=== PATIENT | male | born 1975 | race African-American/Black ===

== ENCOUNTER 2016-10-17 21:28 | Emergency (ER) | payer OTHER ==
[~2016-10-17] VITALS: Ht 177.8 cm; Wt 86.2 kg
[~2016-10-17 21:28] MED LIST: ADALAT CC60 MG PO; BENADRYL25 M3 PO; BENADRYL25 MG ORAL; BENADRYL50 MG ORAL; CATAPRES0.3 MG ORAL; CATAPRES0.3 MG PO; CIPRO250 MG ORAL; CIPROFLOXACIN500 M2 ORAL; CLONIDINE HCL0.3 MG PO; CLOTRIMAZOLE15 GM TOPIC; DIPHENHYDRAMINE25 M1 ORAL; ENALAPRIL MALEA10 MG PO; HYDROCHLOROTHIA25 MG ORAL; KENALOG 0.1% CR15 GM APPLIC; MEDROL DOSEPAK4 MG ORAL; NIFEDIPINE ER60 M2 ORAL; NIFEDIPINE ER60 M3 ORAL; NIFEDIPINE ER60 MG PO; NITROFURANTOIN100 MG PO; PREDNISONE20 MG ORAL; RANITIDINE HCL150 MG ORAL; VASOTEC10 MG ORAL; VASOTEC10 MG PO; ZANTAC150 MG ORAL
[2016-10-17 21:50] VITALS: BP 130/84
[2016-10-17] MEDS ORDERED: DiphenhydrAMINE 50mg/ml Inj IVP ONE ×2 (22:15→23:15)
[2016-10-17 23:13] LABS: EOSINOPHILS % (AUTO) 3.5 % (0.0-3.0); LYMPHOCYTES % (AUTO) 35.5 % (20.0-45.0); MEAN CORPUSCULAR HEMOGLOBIN 34.8 PG (27.0-31.0); MEAN CORPUSCULAR HGB CONC 33.8 G/DL (32.0-36.0); MEAN CORPUSCULAR VOLUME 103 FL (80-99); MEAN PLATELET VOLUME 6.5 FL (6.5-10.1); MONOCYTES % (AUTO) 12.1 % (1.0-10.0); NEUTROPHILS % (AUTO) 47.9 % (45.0-75.0); PLATELET COUNT 231 K/UL (150-450); RED BLOOD COUNT 3.65 M/UL (4.70-6.10); RED CELL DISTRIBUTION WIDTH 13.5 % (11.6-14.8); WHITE BLOOD COUNT 7.1 K/UL (4.8-10.8)
[2016-10-17 23:23] LABS: CALCIUM 10.3 mg/dL (8.6-10.2); CREATININE 12.8 mg/dL (0.7-1.2); GLOMERULAR FILTRATION RATE 5.3 mL/min (>60); PHOSPHORUS 2.4 mg/dL (2.5-4.8); POTASSIUM 4.4 mEQ/L (3.4-4.9)
[2016-10-18] MEDS ORDERED: BENADRYL25 MG ORAL (00:04)
--- NOTE | 2016-10-18 00:04 | Emergency Room Report ---
History of Present Illness General Chief Complaint: General Complaint Source: Patient Present Illness HPI This is a 40-year-old male with a history of renal failure on hemodialysis. He presents with intense itchiness the last couple days. No relief with over-the- counter Benadryl. Similar symptom in the past. Denies any fever chills denies any nausea vomiting. No drug use. No pain. Allergies: Coded Allergies: PENICILLINS (Unverified Allergy, Unknown, 01/02/14) Patient History Past Medical History: see triage record, old chart reviewed, HTN, renal disease , dialysis Past Surgical History: other Pertinent Family History: none Social History: Denies: smoking Immunizations: other Reviewed Nursing Documentation: PMH: Agreed, PSxH: Agreed Nursing Documentation-PMH Hx Cardiac Problems: Yes - Enlarged heart Hx Hypertension: Yes Hx Cancer: No Hx Gastrointestinal Problems: Yes - DECREASED KIDNEY FUNCTION Hx Dialysis: Yes - ESRD, Ylfatls-Qkuapvyi-Rbxlqdve Hx Neurological Problems: No Hx Dizziness: Yes - UPON STANDING Review of Systems Eye: Denies: blurred vision, eye pain ENT: Denies: ear pain, nose congestion, throat swelling Respiratory: Denies: cough, shortness of breath Cardiovascular: Denies: chest pain, palpitations Gastrointestinal: Denies: abdominal pain, diarrhea, nausea, vomiting Musculoskeletal: Denies: back pain, joint pain Skin: Denies: rash Neurological: Denies: headache, numbness Endocrine: Denies: increased thirst, increased urine Hematologic/Lymphatic: Denies: easy bruising All Other Systems: negative except mentioned in HPI Physical Exam Vital Signs Date Time Temp Pulse Resp B/P Pulse Ox O2 Delivery O2 Flow Rate FiO2 10/17/16 21:43 97.9 81 16 130/84 98 Room Air vitals normal Sp02 EP Interpretation: reviewed, normal General Appearance: well appearing, no apparent distress, alert Head: normocephalic, atraumatic Eyes: bilateral eye EOMI, bilateral eye PERRL ENT: hearing grossly normal, normal pharynx Neck: full range of motion, supple, no meningismus Respiratory: chest non-tender, lungs clear, normal breath sounds Cardiovascular #1: regular rate, rhythm, no murmur Gastrointestinal: normal bowel sounds, non tender, no mass, no organomegaly, no bruit, non-distended Musculoskeletal: back normal, gait/station normal, normal range of motion Psychiatric: mood/affect normal Skin: warm/dry Medical Decision Making Diagnostic Impression: Primary Impression: Generalized pruritus ER Course Is with generalized pruritus. No evidence of infection. No evidence of allergic reaction. This may be secondary to uremia. We'll discharge him. Lab Results Impression labs unremarkable Last Vital Signs Date Time Temp Pulse Resp B/P Pulse Ox O2 Delivery O2 Flow Rate FiO2 10/17/16 21:50 97.9 16 130/84 98 Room Air 10/17/16 21:43 81 Status: improved Disposition: HOME, SELF-CARE Condition: Stable Scripts Diphenhydramine Hcl* (BENADRYL*) 25 Mg Capsule 50 MG ORAL Q6H Y for Itching, #30 CAP Prov: YESENIA SAMAYOA M.D. 10/18/16 Referrals: [facility] (PCP) Additional Instructions: Followup with your DrSnow in 7 days. Return if worse. YESENIA SAMAYOA M.D. Oct 18, 2016 00:04
[2016-10-18 00:15] VITALS: BP 130/84
== END 2016-10-18 00:15 | disposition home or self-care (01) ==
LOC: EMR 22:00
DX: L29.9 Pruritus, unspecified (principal); I12.0 Hypertensive chronic kidney disease with stage 5 chronic kidney disease or end stage renal disease; N18.6 End stage renal disease; Z99.2 Dependence on renal dialysis; Z88.0 Allergy status to penicillin
CPT/HCPCS: 36415; 80048; 82962; 84100; 85025; 96374; 96375; 99284; J1200

== ENCOUNTER 2016-10-25 16:30 | Emergency (ER) | payer OTHER ==
[~2016-10-25] VITALS: Ht 180.3 cm; Wt 86.2 kg
[2016-10-25] MEDS ORDERED: DiphenhydrAMINE 50mg/ml Inj IM ONE (18:00)
[2016-10-25] MEDS ORDERED: DiphenhydrAMINE 50mg/ml Inj IVP ONE (18:30)
[2016-10-25 19:15] VITALS: BP 127/81
--- NOTE | 2016-10-25 21:20 | Emergency Room Report ---
History of Present Illness General Chief Complaint: General Complaint Present Illness HPI The patient is a 40-year-old male presenting for possible allergic reaction. He states that he began taking any medication prescribed by his [employer] and began to have total body itching. He states that he stopped taking medication yesterday but symptoms have continued. He tried oral Benadryl which has not helped. He states that this has happened in the past with another medication and was treated with IV Benadryl which did help. He denies any pain. He denies shortness of breath or chest pain. Denies any difficulty breathing. Allergies: Coded Allergies: PENICILLINS (Unverified Allergy, Unknown, 01/02/14) Patient History Past Medical History: see triage record Pertinent Family History: none Reviewed Nursing Documentation: PMH: Agreed, PSxH: Agreed Nursing Documentation-PMH Hx Cardiac Problems: Yes - Enlarged heart Hx Hypertension: Yes Hx Cancer: No Hx Gastrointestinal Problems: Yes - DECREASED KIDNEY FUNCTION Hx Dialysis: Yes - ESRD, Dwqdryl-Ltcfzemy-Hpnnnevz Hx Neurological Problems: No Hx Dizziness: Yes - UPON STANDING Review of Systems All Other Systems: negative except mentioned in HPI Physical Exam Vital Signs Date Time Temp Pulse Resp B/P Pulse Ox O2 Delivery O2 Flow Rate FiO2 10/25/16 16:56 98.4 89 16 117/79 96 Room Air Sp02 EP Interpretation: reviewed, normal General Appearance: no apparent distress, alert, GCS 15, non-toxic Head: normocephalic, atraumatic Eyes: bilateral eye PERRL, bilateral eye normal inspection Respiratory: chest non-tender, lungs clear, normal breath sounds, speaking full sentences Genitourinary: normal inspection, no CVA tenderness Musculoskeletal: back normal, gait/station normal, normal range of motion, non- tender Neurologic: alert, oriented x3, responsive, motor strength/tone normal, sensory intact, speech normal Skin: normal color, no rash, warm/dry, well hydrated Lymphatic: no adenopathy Medical Decision Making PA Attestation Dr. Watts is my supervising physician. Patient management was discussed with my supervising physician Diagnostic Impression: Primary Impression: Allergic reaction Qualified Codes: T78.40XA - Allergy, unspecified, initial encounter ER Course The patient is a 40-year-old male presenting for possible allergic reaction. Ddx considered include but not limited to insect bite, contact dermatitis, eczema, cellulitis, anaphylaxis, among others PE: vitals WNL. NAD No angioedema. Lungs CTA bilat Skin is warm and dry. excoriation mclain present. No hives. No other lesions He is given IV benadryl and feels better. He will be DC'ed and will Fu with his doctor tomorrow to discuss medication change. ER precautions given Last Vital Signs Date Time Temp Pulse Resp B/P Pulse Ox O2 Delivery O2 Flow Rate FiO2 10/25/16 19:15 79 16 127/81 98 Room Air 10/25/16 16:56 98.4 Status: improved Disposition: HOME, SELF-CARE Condition: Improved Referrals: NON PHYSICIAN (PCP) Patient Instructions: Pruritus Additional Instructions: I discussed my findings with the patient. All questions and concerns have been answered. Treatment and medication compliance have been addressed. I advised the patient that they need to follow up with their doctor as soon as possible. Return to ED if symptoms worsen, new symptoms arise, or if needed for any reason. Patient verbalized understanding of discharge instructions. CHARLI QUIROZ Oct 25, 2016 21:20
== END 2016-10-25 19:18 | disposition home or self-care (01) ==
LOC: EMR 17:55
DX: T78.40XA Allergy, unspecified, initial encounter (principal); X58.XXXA Exposure to other specified factors, initial encounter; L29.9 Pruritus, unspecified; I12.0 Hypertensive chronic kidney disease with stage 5 chronic kidney disease or end stage renal disease; N18.6 End stage renal disease; Z99.2 Dependence on renal dialysis; Z88.0 Allergy status to penicillin
CPT/HCPCS: 96372; 96374; 99284; J1200

== ENCOUNTER 2017-06-28 11:16 | Emergency (ER) | payer OTHER ==
[~2017-06-28] VITALS: Ht 172.7 cm; Wt 95.3 kg
[2017-06-28 11:38] VITALS: BP 11/67
[2017-06-28] MEDS ORDERED: ALBUTEROL SULF8.5 GM INH (11:52)
[2017-06-28 11:55] VITALS: BP 110/67
--- NOTE | 2017-06-29 07:45 | Emergency Room Report ---
History of Present Illness General Chief Complaint: Earache Source: Patient Present Illness HPI 41-year-old male presents ED for evaluation. Complaining of bilateral ear pain. Started yesterday. Patient states he is "getting over a cold". States cough has improved however developed ear pain now. Dull, 5 out of 10, nonradiating. Denies fevers or chills. Denies sore throat. Notes cough which is dry. Admits to smoking. Denies chest pain or shortness of breath. History of ESRD and is compliant with his dialysis. No other aggravating relieving factors. Denies any other associated symptoms Allergies: Coded Allergies: PENICILLINS (Unverified Allergy, Unknown, 01/02/14) Patient History Past Medical History: HTN, renal disease, dialysis Past Surgical History: none Pertinent Family History: none Social History: Denies: smoking, alcohol use, drug use Immunizations: UTD Reviewed Nursing Documentation: PMH: Agreed; PSxH: Agreed Nursing Documentation-PMH Hx Cardiac Problems: Yes - Enlarged heart Hx Hypertension: Yes Hx Cancer: No Hx Gastrointestinal Problems: Yes - DECREASED KIDNEY FUNCTION Hx Dialysis: Yes - ESRD, Uleeayr-Fptwkhne-Rziwopdu Hx Neurological Problems: No Hx Dizziness: Yes - UPON STANDING Review of Systems All Other Systems: negative except mentioned in HPI Physical Exam Vital Signs Date Time Temp Pulse Resp B/P (MAP) Pulse Ox O2 Delivery O2 Flow Rate FiO2 06/28/17 11:34 98.7 105 18 11/ 96 Room Air 98.8 Sp02 EP Interpretation: reviewed, normal General Appearance: no apparent distress, alert, GCS 15, non-toxic Head: normocephalic, atraumatic Eyes: bilateral eye normal inspection, bilateral eye PERRL ENT: hearing grossly normal, normal pharynx, no angioedema, normal voice Neck: full range of motion, supple/symm/no masses Respiratory: chest non-tender, lungs clear, normal breath sounds, speaking full sentences Cardiovascular #1: regular rate, rhythm, no edema Cardiovascular #2: 2+ carotid (R), 2+ carotid (L), 2+ radial (R), 2+ radial (L) , 2+ dorsalis pedis (R), 2+ dorsalis pedis (L) Gastrointestinal: normal bowel sounds, non tender, soft, non-distended, no guarding, no rebound Rectal: deferred Genitourinary: normal inspection, no CVA tenderness Musculoskeletal: back normal, gait/station normal, normal range of motion, non- tender Neurologic: alert, oriented x3, responsive, motor strength/tone normal, sensory intact, speech normal Psychiatric: judgement/insight normal, memory normal, mood/affect normal, no suicidal/homicidal ideation Reflexes: 3+ bicep (R), 3+ bicep (L), 3+ tricep (R), 3+ tricep (L), 3+ knee (R) , 3+ knee (L) Skin: normal color, no rash, warm/dry, well hydrated Lymphatic: no adenopathy Medical Decision Making Diagnostic Impression: Primary Impression: Upper respiratory infection Qualified Codes: J06.9 - Acute upper respiratory infection, unspecified ER Course Hospital Course 41-year-old male presents ED with bilateral ear pain, cough Differential diagnoses include: URI, pharyngitis, otitis media, asthma Clinical course Patient placed on stretcher. After initial history, physical exam reveals a male in no acute distress. Bilateral TM unremarkable. No pharyngeal erythema. No tonsillar exudates. No lymphadenopathy. minimal wheezing noted on exam. abdomen soft. Clinical findings consistent with URI. Reassurance given. patient does not require abx, however I will prescribe inhaler Diagnosis - URI Stable and discharged home with Rx albuterol. Instructed to followup with PMD. Return to ED if symptoms recur or worsen Last Vital Signs Date Time Temp Pulse Resp B/P (MAP) Pulse Ox O2 Delivery O2 Flow Rate FiO2 06/28/17 11:55 98.8 105 18 110/67 96 06/28/17 11:38 Room Air Status: improved Disposition: HOME, SELF-CARE Condition: Stable Scripts Albuterol Sulfate* (ALBUTEROL SULFATE MDI*) 8.5 Gm Hfa.aer.ad 2 PUFF INH Q6H, #1 EA 0 Refills Prov: Phillip Gonzalez MD 06/28/17 Referrals: [facility] ([facility]P) Patient Instructions: Upper Respiratory Infection, Adult, Hzcv-dt-Sxcw Phillip Gonzalez MD Jun 29, 2017 07:45
== END 2017-06-28 11:55 | disposition home or self-care (01) ==
LOC: EMR 11:48
DX: J06.9 Acute upper respiratory infection, unspecified (principal); H92.03 Otalgia, bilateral; I12.0 Hypertensive chronic kidney disease with stage 5 chronic kidney disease or end stage renal disease; N18.6 End stage renal disease; Z99.2 Dependence on renal dialysis; Z88.0 Allergy status to penicillin
CPT/HCPCS: 99283

== ENCOUNTER 2017-07-03 20:12 | Emergency (ER) | payer OTHER ==
[~2017-07-03] VITALS: Ht 175.3 cm; Wt 104.3 kg
[~2017-07-03 20:12] MED LIST changes: +ALBUTEROL SULF8.5 GM INH
--- NOTE | 2017-07-03 21:06 | Emergency Room Report ---
History of Present Illness General Chief Complaint: General Complaint Source: Patient, Medical Record Present Illness HPI This is a 41-year-old male with a history of renal failure on hemodialysis. His dialysis days are Tuesday, , and Tuesday. He presents with chief complaint of itching. Diffuse in nature. Onset for about a day. He was concerned that his phosphorus is high and and also his potassium may be high. He came in today because his dialysis will be in to Tuesday. He is compliant with his medication and dialysis. No fever chills but no nausea no vomiting. Has not taken anything for it. similar symptoms in the past. Allergies: Coded Allergies: No Known Allergies (Unverified , 07/03/17) Patient History Past Medical History: see triage record, old chart reviewed, HTN, renal disease , dialysis Past Surgical History: other - nephrectomy Pertinent Family History: none Social History: Denies: smoking Immunizations: other Reviewed Nursing Documentation: PMH: Agreed; PSxH: Agreed Nursing Documentation-PMH Past Medical History: No History, Except For Hx Cardiac Problems: Yes - Enlarged heart Hx Hypertension: Yes Hx Cancer: No Hx Gastrointestinal Problems: Yes - DECREASED KIDNEY FUNCTION Hx Dialysis: Yes - ESRD, Swgazgm-Fexwdcdq-Ucwacens Hx Neurological Problems: No Hx Dizziness: Yes - UPON STANDING Review of Systems Eye: Denies: eye pain, blurred vision ENT: Denies: ear pain, nose congestion, throat swelling Respiratory: Denies: cough, shortness of breath Cardiovascular: Denies: chest pain, palpitations Gastrointestinal: Denies: abdominal pain, diarrhea, nausea, vomiting Musculoskeletal: Denies: back pain, joint pain Skin: Denies: rash Neurological: Denies: headache, numbness Endocrine: Denies: increased thirst, increased urine Hematologic/Lymphatic: Denies: easy bruising All Other Systems: negative except mentioned in HPI Physical Exam Vital Signs Date Time Temp Pulse Resp B/P (MAP) Pulse Ox O2 Delivery O2 Flow Rate FiO2 07/03/17 20:47 98.1 88 16 120/78 99 Room Air 98.1 vitals chad Sp02 EP Interpretation: reviewed, normal General Appearance: well appearing, no apparent distress, alert Head: normocephalic, atraumatic Eyes: bilateral eye PERRL, bilateral eye EOMI ENT: hearing grossly normal, normal pharynx Neck: full range of motion, supple, no meningismus Respiratory: chest non-tender, lungs clear, normal breath sounds Cardiovascular #1: regular rate, rhythm, no murmur Gastrointestinal: normal bowel sounds, non tender, no mass, no organomegaly, no bruit, non-distended Musculoskeletal: back normal, gait/station normal, normal range of motion, other - right upper arm graft with good thrill Psychiatric: mood/affect normal Skin: warm/dry Medical Decision Making Diagnostic Impression: Primary Impression: Pruritus ER Course Patient with generalize itching. No evidence of infection. No evidence of LI abnormality. No evidence of allergic reaction. We'll discharge home. He felt better after Benadryl. Last Vital Signs Date Time Temp Pulse Resp B/P (MAP) Pulse Ox O2 Delivery O2 Flow Rate FiO2 07/03/17 20:47 98.1 88 16 120/78 99 Room Air 98.1 Status: improved Disposition: HOME, SELF-CARE Condition: Stable Referrals: NON PHYSICIAN (PCP) Additional Instructions: Follow-up your Dr. in 7 days. Keep your dialysis appointment. Return if worse. YESENIA SAMAYOA M.D. Jul 03, 2017 21:06
[2017-07-03] MEDS ORDERED: DiphenhydrAMINE 50mg/ml Inj IVP ONE (21:15)
[2017-07-03 21:18] VITALS: BP 113/86
[2017-07-03 21:20] LABS: BASOPHILS % (AUTO) 1.5 % (0.0-2.0); EOSINOPHILS % (AUTO) 3.1 % (0.0-3.0); HEMATOCRIT 34.5 % (42.0-52.0); HEMOGLOBIN 10.9 G/DL (14.2-18.0); LYMPHOCYTES % (AUTO) 31.3 % (20.0-45.0); MEAN CORPUSCULAR VOLUME 101 FL (80-99); MONOCYTES % (AUTO) 11.3 % (1.0-10.0); NEUTROPHILS % (AUTO) 52.8 % (45.0-75.0); PLATELET COUNT 241 K/UL (150-450); RED BLOOD COUNT 3.43 M/UL (4.70-6.10); RED CELL DISTRIBUTION WIDTH 14.8 % (11.6-14.8); WHITE BLOOD COUNT 8.1 K/UL (4.8-10.8)
[2017-07-03 21:35] LABS: ANION GAP 9 mmol/L (5-15); BLOOD UREA NITROGEN 29 mg/dL (7-18); CALCIUM 9.3 MG/DL (8.5-10.1); CARBON DIOXIDE 33 MMOL/L (21-32); CHLORIDE 99 MMOL/L (98-107); CREATININE 11.6 MG/DL (0.55-1.30); POTASSIUM 4.1 MMOL/L (3.5-5.1); SODIUM 141 MMOL/L (136-145)
[2017-07-03 21:39] LABS: PHOSPHORUS 4.4 MG/DL (2.5-4.9)
[2017-07-03 22:03] VITALS: BP 124/76
== END 2017-07-03 22:09 | disposition home or self-care (01) ==
LOC: EMR 20:50
DX: L29.9 Pruritus, unspecified (principal); I12.0 Hypertensive chronic kidney disease with stage 5 chronic kidney disease or end stage renal disease; N18.6 End stage renal disease; Z99.2 Dependence on renal dialysis
CPT/HCPCS: 36415; 80048; 83735; 84100; 85025; 96374; 99284; J1200

== ENCOUNTER 2018-12-09 17:00 | Emergency (ER) | payer OTHER ==
[~2018-12-09] VITALS: Ht 177.8 cm; Wt 120.2 kg
[2018-12-09 17:21] VITALS: BP 108/74
--- NOTE | 2018-12-09 17:21 | NUR ---
ED Nurse Note: pt walked in to ER from home due to pain from fall in 0 this morning. pt aao x4 and ambulatory with a cane. calm and cooperative. skin clean and intact. pt gets dialysis Q Tues, [place], Sat and he got one this morning. pt has fistula on Rt upper arm. pt is in gown and on surveillance monitor.
[2018-12-09] MEDS ORDERED: DiphenhydrAMINE 50mg/ml Inj IM ONE (17:30)
[2018-12-09] MEDS ORDERED: oxyCODONE HCL/Acetaminophen 5/325mg PO ONE (17:30)
--- NOTE | 2018-12-09 17:32 | Emergency Room Report ---
History of Present Illness General Chief Complaint: Pain Source: Patient Present Illness HPI The patient presents after slipping and falling at 3:55 this morning. He was in a 7-[employer] getting prepared to go to dialysis. He slipped on some water and landed on his left side. He has left shoulder pain. Left elbow pain left knee pain and left big toe pain. He denies loss of consciousness. He fell pretty hard. He is tried taking tramadol before coming in. The pain is still significant. He rates it 8/10 and aching and having difficulty walking. He brought a cane and is able to ambulate with difficulty. He denies any numbness. No bruising. The patient underwent dialysis completely without difficulty. He does not make urine at this time. He denies chest pain, palpitations, change in vision, headache, nausea, vomiting, diarrhea or skin rashes. The patient complains of itching. He states this is not unusual postdialysis. He is requesting a shot of Benadryl. A year and a half ago he had a nephrectomy for kidney cancer. Allergies: Coded Allergies: No Known Allergies (Unverified , 07/03/17) Patient History Past Medical History: see triage record Past Surgical History: other - fistula, nephrectomy from kidney cancer Social History: Reports: smoking Social History Narrative brought by Reviewed Nursing Documentation: PMH: Agreed; PSxH: Agreed Nursing Documentation-PMH Hx Cardiac Problems: Yes - Enlarged heart Hx Hypertension: Yes Hx Cancer: No Hx Gastrointestinal Problems: Yes - DECREASED KIDNEY FUNCTION Hx Dialysis: Yes - ESRD, Tswlekd-Ynbhavwz-Ufxkzzjw Hx Neurological Problems: No Hx Dizziness: Yes - UPON STANDING Review of Systems All Other Systems: negative except mentioned in HPI Physical Exam Vital Signs Date Time Temp Pulse Resp B/P (MAP) Pulse Ox O2 Delivery O2 Flow Rate FiO2 12/09/18 17:03 98.2 99 18 112/73 (86) 95 Room Air Sp02 EP Interpretation: reviewed, normal General Appearance: well appearing, no apparent distress, GCS 15 Head: normocephalic, atraumatic Eyes: bilateral eye normal inspection, bilateral eye abnormal EOM - Disconjugate gaze ENT: moist mucus membranes Neck: supple, no bony tend Respiratory: lungs clear, normal breath sounds Cardiovascular #1: regular rate, rhythm Cardiovascular #2: 2+ radial (R), 2+ dorsalis pedis (L) Gastrointestinal: normal inspection, normal bowel sounds, non tender, no mass, non-distended Genitourinary: no CVA tenderness Musculoskeletal: back normal, normal range of motion, no calf tenderness, pelvis stable, other - Left elbow without point tenderness full range of motion without effusion, tender - Left great toe, left knee and left shoulder. Ligaments stable and no effusion. Passive range of motion full of left shoulder. Neurologic: alert, oriented x3, grossly normal Psychiatric: mood/affect normal Skin: no rash Medical Decision Making Diagnostic Impression: Primary Impression: Fall Qualified Codes: W19.XXXA - Unspecified fall, initial encounter Additional Impressions: Multiple contusions Fracture of left great toe Qualified Codes: S92.425A - Nondisplaced fracture of distal phalanx of left great toe, initial encounter for closed fracture ESRD (end stage renal disease) on dialysis ER Course Patient presents post slip and fall early this morning. Differential includes contusion, sprain and fracture. X-rays are indicated. In addition the patient will be given a dose of Percocet. We will check an Accu-Chek. He is requesting Benadryl and this will be given IM. Patient refused Benadryl unless it was given IV. Accu-Chek 91. Improved with Percocet. Fx big toe. Djd rest. Casey re-applied by me (tension). Position excellent and distal neurovasc normal. Demetrio taping and Ortho boot with improvement and normal distal neurovascular exam checked by me. Improved pain. Discussed treatment. Ambulatory without difficulty without cane. Greatly improved. Patient stable for outpatient observation and treatment. Other X-Ray Diagnostic Results Other X-Ray Diagnostic Results #1: X-Ray ordered: Left foot # of Views/Limited Vs Complete: 3 View Indication: Pain EP Interpretation: Yes Interpretation: no dislocation, no soft tissue swelling, other - fx distal phalynx Impression: Other Electronically Signed by: Electronically signed by Ellis Correa MD Other X-Ray Diagnostic Results #2: X-Ray ordered: Left knee # of Views/Limited Vs Complete: 3 View Indication: Pain EP Interpretation: Yes Interpretation: no dislocation, no soft tissue swelling, no fractures, other - DJD and narrowing of joint space Impression: Other Electronically Signed by: Electronically signed by Ellis Correa MD Other X-Ray Diagnostic Results #3: X-Ray ordered: Left shoulder # of Views/Limited Vs Complete: 3 View Indication: Pain EP Interpretation: Yes Interpretation: no dislocation, no soft tissue swelling, no fractures, other - DJD Impression: Other Electronically Signed by: Electronically signed by Ellis Correa MD Last Vital Signs Date Time Temp Pulse Resp B/P (MAP) Pulse Ox O2 Delivery O2 Flow Rate FiO2 12/09/18 18:35 98.2 92 18 112/86 100 Room Air Status: improved Disposition: HOME, SELF-CARE Condition: Improved Scripts Oxycodone/Acetaminophen 5-325* (PERCOCET 5-325 MG TABLET*) 1 Each Tablet 1 TAB ORAL Q6H PRN for For Pain, #12 TAB Prov: Ellis Correa MD 12/09/18 Ellis Correa MD Dec 09, 2018 17:32
--- NOTE | 2018-12-09 17:39 | NUR ---
ED Nurse Note: pt refused Benadryl IM as stating "The shot on my skin always gives me pain for a week. I want IV." ERMD made aware.
--- NOTE | 2018-12-09 17:43 | NUR ---
ED Nurse Note: pt went down for x-ray in stable condition.
--- NOTE | 2018-12-09 17:43 | NUR ---
ED Nurse Note: ERMD offered pt Benadryl PO. pt stated "You guys don't understand and refused. no Benadryl will be given. pt made aware.
--- NOTE | 2018-12-09 18:07 | NUR ---
ED Nurse Note: pt came back from x-ray in stable condition.
--- NOTE | 2018-12-09 18:11 | NUR ---
ED Nurse Note: avinash wrap applied at bedside.
[2018-12-09] MEDS ORDERED: PERCOCET 5-3251 EACH ORAL (18:25)
[2018-12-09 18:35] VITALS: BP 112/86
--- NOTE | 2018-12-09 18:35 | NUR ---
ED Nurse Note: Pt cleared by health care Provider for discharge after avinash wrap, splint applied on Lt foot. DC instructions/prescription was given and explained to pt and verbalized understanding of teachings. All medical deviecs such as ID band removed. Pt is AAO x4, ambulatory and left with all personal belongings.
--- NOTE | 2018-12-09 19:14 | Diagnostic Imaging Report ---
EXAM: XR Left Foot Complete, 3 or More Views CLINICAL HISTORY: TRAUMA TECHNIQUE: Frontal, lateral and oblique views of the left foot. COMPARISON: No relevant prior studies available. FINDINGS: Bones joints: 1st distal phalangeal base nondisplaced fracture. No acute dislocation. Soft tissues: Soft tissue swelling. No radiopaque foreign body. IMPRESSION: 1st distal phalangeal base nondisplaced fracture.
--- NOTE | 2018-12-09 19:15 | Diagnostic Imaging Report ---
EXAM: XR Left Knee, 3 Views CLINICAL HISTORY: TRAUMA TECHNIQUE: Three views of the left knee. COMPARISON: No relevant prior studies available. FINDINGS: Bones joints: No acute displaced fracture or dislocation. No significant joint effusion. Mild degenerative changes. Soft tissues: Unremarkable. IMPRESSION: No acute displaced fracture or dislocation.
--- NOTE | 2018-12-09 19:15 | Diagnostic Imaging Report ---
EXAM: XR Left Shoulder Complete, 2 or More Views CLINICAL HISTORY: TRAUMA TECHNIQUE: Two or more views of the left shoulder. COMPARISON: No relevant prior studies available. FINDINGS: Bones joints: No acute displaced fracture or dislocation. Soft tissues: Unremarkable. IMPRESSION: No acute displaced fracture or dislocation.
== END 2018-12-09 18:35 | disposition home or self-care (01) ==
LOC: EMR 17:46
DX: S92.425A Nondisplaced fracture of distal phalanx of left great toe, initial encounter for closed fracture (principal); T14.8XXA Other injury of unspecified body region, initial encounter; I12.0 Hypertensive chronic kidney disease with stage 5 chronic kidney disease or end stage renal disease; N18.6 End stage renal disease; Z99.2 Dependence on renal dialysis; Z85.528 Personal history of other malignant neoplasm of kidney; Z90.5 Acquired absence of kidney; F17.200 Nicotine dependence, unspecified, uncomplicated; W01.0XXA Fall on same level from slipping, tripping and stumbling without subsequent striking against object, initial encounter; Y92.9 Unspecified place or not applicable
CPT/HCPCS: 73030; 73562; 73630; 82962; Z7502; 99284

== ENCOUNTER 2019-05-03 00:12 | Inpatient (IN) | payer OTHER ==
[~2019-05-03] VITALS: Ht 177.8 cm; Wt 108.9 kg
[~2019-05-03 00:12] MED LIST changes: +PERCOCET 5-3251 EACH ORAL
--- NOTE | 2019-05-03 00:20 | NUR ---
ED Nurse Note: PT WALKED IN TO ED C/O DIALYSIS FISTULA PROBLEM. PT STATES ONSET OF PROBLEM AFTER HIS DIALYSIS ON TUESDAY 05/02. PT STATES VISIBLE PUS AND SWELLING WITH MILD PAIN ON THE SITE. DIALYSIS SITE IS VISIBLY EDEMATOUS WITH SMALL YELLOW DRAINAGE. VSS, NAD, ERMD AT BEDSIDE. WILL CONTINUE TO MONITOR PATIENT.
[2019-05-03 00:32] VITALS: BP 141/82
[2019-05-03] MEDS ORDERED: Vancomycin 1.5 GM in NS 275 ML IVPB ONE (00:45)
[2019-05-03 00:53] LABS: BASOPHILS % (AUTO) 0.9 % (0.0-2.0); EOSINOPHILS % (AUTO) 2.1 % (0.0-3.0); HEMATOCRIT 32.9 % (42.0-52.0); HEMOGLOBIN 11.2 G/DL (14.2-18.0); MEAN CORPUSCULAR VOLUME 101 FL (80-99); MONOCYTES % (AUTO) 14.6 % (1.0-10.0); NEUTROPHILS % (AUTO) 59.4 % (45.0-75.0); PLATELET COUNT 206 K/UL (150-450); RED BLOOD COUNT 3.26 M/UL (4.70-6.10); RED CELL DISTRIBUTION WIDTH 15.4 % (11.6-14.8); WHITE BLOOD COUNT 9.1 K/UL (4.8-10.8)
[2019-05-03] MEDS ORDERED: Bacitracin Oint UD TOPIC ONE (01:00)
[2019-05-03 01:06] LABS: ANION GAP 10 mmol/L (5-15); BLOOD UREA NITROGEN 1 mg/dL (7-18); CARBON DIOXIDE 33 MMOL/L (21-32); CHLORIDE 98 MMOL/L (98-107); CREATININE 15.3 MG/DL (0.55-1.30); POTASSIUM 4.9 MMOL/L (3.5-5.1); SODIUM 141 MMOL/L (136-145)
[2019-05-03 01:10] LABS: ALANINE AMINOTRANSFERASE 37 U/L (12-78); ALBUMIN 3.6 G/DL (3.4-5.0); ALBUMIN/GLOBULIN RATIO 0.9 (1.0-2.7); ALKALINE PHOSPHATASE 79 U/L (46-116); ASPARTATE AMINO TRANSFERASE 21 U/L (15-37); BILIRUBIN,TOTAL 0.2 MG/DL (0.2-1.0); CREATINE KINASE 816 U/L (26-308)
--- NOTE | 2019-05-03 01:17 | Emergency Room Report ---
History of Present Illness General Chief Complaint: General Complaint Source: Patient Present Illness HPI Earlier today patient noticed drainage from his dialysis fistula earlier today. He denies any fevers or chills. Dialysis was last performed yesterday. He has redness and swelling in 1 of the sites that they used. He is not taking any antibiotics at this time. Patient with recent hospitalization at [facility] for evaluation of his heart. He says his heart enzyme was elevated at that time. He denies chest pain or shortness of breath at this time. The patient does not make urine. No sore throat, palpitations, nausea, vomiting, diarrhea, abdominal pain, joint pain, depression, anxiety, visual changes, dizziness, headache. The patient was due to have dialysis this morning at 3 AM. Allergies: Coded Allergies: No Known Allergies (Unverified , 07/03/17) Patient History Past Medical History: see triage record Past Surgical History: other - Dialysis fistula right upper arm Social History: Denies: smoking, alcohol use, drug use Social History Narrative and working Reviewed Nursing Documentation: PMH: Agreed; PSxH: Agreed Nursing Documentation-PMH Hx Cardiac Problems: Yes - Enlarged heart Hx Hypertension: Yes Hx Cancer: No Hx Gastrointestinal Problems: Yes - DECREASED KIDNEY FUNCTION Hx Dialysis: Yes - ESRD, Eonmwft-Dzatjswt-Wcperwtb Hx Neurological Problems: No Hx Dizziness: Yes - UPON STANDING Review of Systems Endocrine: Reports: unexplained weight loss All Other Systems: negative except mentioned in HPI Physical Exam Vital Signs Date Time Temp Pulse Resp B/P (MAP) Pulse Ox O2 Delivery O2 Flow Rate FiO2 05/03/19 00:15 98.1 82 18 144/94 (111) 97 Room Air Sp02 EP Interpretation: reviewed, normal General Appearance: well appearing, no apparent distress, GCS 15 Head: normocephalic Eyes: bilateral eye PERRL, bilateral eye other - Disconjugate gaze ENT: moist mucus membranes Neck: supple Respiratory: chest non-tender, lungs clear, normal breath sounds Cardiovascular #1: regular rate, rhythm Cardiovascular #2: 2+ radial (R) - Thrill of fistula upper arm Gastrointestinal: normal inspection, normal bowel sounds, non tender, no mass, non-distended Musculoskeletal: back normal, normal range of motion, gait/station normal Neurologic: alert, oriented x3, grossly normal Psychiatric: mood/affect normal Skin: warm/dry, other - Erythema and minimal inflammation upper dialysis site without fluctuance. Slight drainage. Medical Decision Making Diagnostic Impression: Primary Impression: Cellulitis dialysis fistula Additional Impression: ESRD (end stage renal disease) on dialysis ER Course Patient presents with drainage from his dialysis fistula. Differential includes cellulitis, abscess, local infection amongst others. Clinically he is nontoxic at this time. However due to the extent of his illness laboratory is indicated as well as blood cultures. Dose of vancomycin will be administered and topical bacitracin applied. EKG without injury. Chest x-ray no infiltrates. Labs with normal white count. CMP with chronic renal failure. gave phone numbers for contact if blood cultures are positive. They were taken to be complete. The patient and family understand that they may need to be called back in if these blood cultures are positive. 2 phone numbers were provided. and . Called with positive troponin. Aspirin administered. Discussed findings with patient and . Discussed the need for repeat troponin determinations and observation. Patient initially threatened to sign out AGAINST MEDICAL ADVICE but then understood the reason to stay and agreed. No urgent dialysis indicated at the moment. If troponin was not elevated, I would discharge the patient on Bactrim. Patient wanted to go to [facility] but agreed to stay only for observation and repeat troponins Laboratory Tests Test 05/03/19 00:40 White Blood Count 9.1 K/UL (4.8-10.8) Red Blood Count 3.26 M/UL (4.70-6.10) L Hemoglobin 11.2 G/DL (14.2-18.0) L Hematocrit 32.9 % (42.0-52.0) L Mean Corpuscular Volume 101 FL (80-99) H Mean Corpuscular Hemoglobin 34.3 PG (27.0-31.0) H Mean Corpuscular Hemoglobin Concent 33.9 G/DL (32.0-36.0) Red Cell Distribution Width 15.4 % (11.6-14.8) H Platelet Count 206 K/UL (150-450) Mean Platelet Volume 5.6 FL (6.5-10.1) L Neutrophils (%) (Auto) 59.4 % (45.0-75.0) Lymphocytes (%) (Auto) 23.0 % (20.0-45.0) Monocytes (%) (Auto) 14.6 % (1.0-10.0) H Eosinophils (%) (Auto) 2.1 % (0.0-3.0) Basophils (%) (Auto) 0.9 % (0.0-2.0) Prothrombin Time 10.7 SEC (9.30-11.50) Prothrombin Time INR 1.0 (0.9-1.1) Activated Partial Thromboplast Time 28 SEC (23-33) Sodium Level 141 MMOL/L (136-145) Potassium Level 4.9 MMOL/L (3.5-5.1) Chloride Level 98 MMOL/L (98-107) Carbon Dioxide Level 33 MMOL/L (21-32) H Anion Gap 10 mmol/L (5-15) Blood Urea Nitrogen 1 mg/dL (7-18) L Creatinine 15.3 MG/DL (0.55-1.30) H Estimate Glomerular Filtration Rate 4.2 mL/min (>60) Glucose Level 97 MG/DL (74-106) Lactic Acid Level 0.50 mmol/L (0.4-2.0) Calcium Level 9.6 MG/DL (8.5-10.1) Magnesium Level 2.0 MG/DL (1.8-2.4) Total Bilirubin 0.2 MG/DL (0.2-1.0) Aspartate Amino Transferase (AST) 21 U/L (15-37) Alanine Aminotransferase (ALT) 37 U/L (12-78) Alkaline Phosphatase 79 U/L (46-116) Total Creatine Kinase 816 U/L (26-308) H Troponin I 0.271 ng/mL (0.000-0.056) Total Protein 7.6 G/DL (6.4-8.2) Albumin 3.6 G/DL (3.4-5.0) Globulin 4.0 g/dL Albumin/Globulin Ratio 0.9 (1.0-2.7) L EKG Diagnostic Results Rate: normal Rhythm: NSR ST Segments: no acute changes - Left ventricular hypertrophy Rhythm Strip Diag. Results EP Interpretation: yes Rhythm: NSR, no PVC's, no ectopy Chest X-Ray Diagnostic Results Chest X-Ray Diagnostic Results : Chest X-Ray Ordered: Yes # of Views/Limited/Complete: 1 View Indication: Other EP Interpretation: Yes Interpretation: no consolidation, no pneumothorax, other - inc cor, possible effusion L Impression: Other Electronically Signed by: Electronically signed by Ellis Correa MD Last Vital Signs Date Time Temp Pulse Resp B/P (MAP) Pulse Ox O2 Delivery O2 Flow Rate FiO2 05/03/19 08:00 97.9 77 20 133/78 (96) 97 05/03/19 04:31 Room Air 05/03/19 03:20 98 Status: improved Disposition: PLACE IN OBSERVATION Condition: Serious Referrals: [facility],REFERRING (PCP) Ellis Correa MD May 03, 2019 01:17
--- NOTE | 2019-05-03 01:49 | NUR ---
ED Nurse Note: XR ATBEDSIDE.
[2019-05-03 01:52] LABS: CALCIUM 9.6 MG/DL (8.5-10.1)
--- NOTE | 2019-05-03 02:52 | NUR ---
ED Nurse Note: patient requested to leave, stating he wishes to drive to [facility] instead of an admission in [place]. NOEMY notified.
[2019-05-03] MEDS ORDERED: DiphenhydrAMINE 50mg/ml Inj IVP ONE (03:15)
--- NOTE | 2019-05-03 03:15 | NUR ---
ED Nurse Note: gave report to Celestina SHERWOOD for 211-2
--- NOTE | 2019-05-03 03:20 | NUR ---
TRANSFER TO FLOOR: Patient transferred to [facility] via [facility] in stable condition accompanied by 1 rn 1tech as ordered, per dr. Martinez. Report given to Stephany SHERWOOD. Belongings sent with patient.
--- NOTE | 2019-05-03 03:35 | NUR ---
NURSE NOTES: Received report from Modesto Winter, FLOOR WORKER [employer]SF[employer]. Patient was transferred to Telemetry unit from ER via gurney without incident. No signs of acute distress noted; denies pain at this time. AOx4; able to make needs known. Ambulates independently. Checked IV site; patent and flushed. No erythema, bleeding, or infiltration noted. Right upper arm AV shunt noted; thrill and bruit present, however not actively in use for further assessment of potential infection. Patient put on Tele box; sinus rhythm on the monitor (70s). Belongings list checked with patient and transferring RN. Skin assessment performed; skin intact. No wounds noted. Bed at lowest position, brakes on, siderails up x2. Call light within reach. Will continue to monitor.
[2019-05-03 04:00] VITALS: BP 146/111
[2019-05-03] MEDS ORDERED: ASPIR 8181 MG ORAL (04:15)
[2019-05-03] MEDS ORDERED: CATAPRES0.2 MG ORAL (04:15)
[2019-05-03] MEDS ORDERED: NORMODYNE100 MG ORAL (04:15)
[2019-05-03] MEDS ORDERED: CALCIUM ACETAT667 M2 PO (04:15)
--- NOTE | 2019-05-03 04:22 | NUR ---
NURSE NOTES: Called Dr. Martinez for admission orders. Awaiting callback.
--- NOTE | 2019-05-03 05:57 | NUR ---
NURSE NOTES: Received admission orders from Dr. Martinez. Noted and carried out. Addendum: 05/03/19 at 0611 by ANGELLA REN RN RN Per Dr. Martinez, he will call renal consult for dialysis order.
--- NOTE | 2019-05-03 06:48 | NUR ---
NURSE NOTES: Clarified with Dr. Martinez regarding patient's Labetalol and Nifedipine medication doses. Received new orders. Noted and carried out.
--- NOTE | 2019-05-03 07:00 | NUR ---
Received report from PRESLEY Jaquez. Patient A/O X 4, No signs of acute distress noted; denies pain at this time. able to make needs known. Ambulates independently. IV intact; patent and flushed. No erythema, bleeding, or infiltration noted. Right upper arm AV shunt noted; thrill and bruit present, however not actively in use for further assessment of potential infection. skin intact. No wounds noted. Bed at lowest position, brakes on, siderails up x2. Call light within reach. Will continue to monitor.
--- NOTE | 2019-05-03 07:18 | NUR ---
HAND-OFF: Report given to PRESLEY Garcia. Patient is asleep lying left lateral recumbent; resting comfortably. In stable condition.
[2019-05-03 08:00] VITALS: BP 133/78
[2019-05-03] MEDS ORDERED: Calcium Acetate 667mg Tab ORAL SCH (09:00)
[2019-05-03] MEDS ORDERED: Aspirin Baby 81mg ORAL SCH (09:00)
[2019-05-03] MEDS ORDERED: cloNIDine 0.2mg Tab ORAL SCH (09:00)
[2019-05-03] MEDS ORDERED: Aspirin EC 81mg tab ORAL SCH (09:00)
[2019-05-03] MEDS ORDERED: Heparin 5000 units/ml inj SUBQ SCH (09:00)
--- NOTE | 2019-05-03 09:28 | NUR ---
CARDIOLOGY: PT REFUSED THE ECHOCARDIOGRAM , PT'S LEAVING AMA . NURSE KEE IS AWARE .
--- NOTE | 2019-05-03 09:34 | NUR ---
per patient: he has dialysis appointment @ 0900 am today. patient signed AMA and left @ [address] Martinez made aware, no contact number provided for next of kin in face sheet. Addendum: 05/03/19 at 0957 by KEE ORTIZ RN RN patient refused to get HD in [place]
--- NOTE | 2019-05-03 13:18 | Diagnostic Imaging Report ---
Indication: Dyspnea Comparison: 01/01/2014 A single view chest radiograph was obtained. Findings: There is a moderate to severe enlargement of the cardiac silhouette. There is some pulmonary vascular prominence within the lungs. The bones are unremarkable. No definite pleural effusions are identified. IMPRESSION: Mild pulmonary vascular congestion
--- NOTE | 2019-05-03 13:53 | NUR ---
CASE MANAGEMENT:REVIEW 43 YR OLD MALE WALKED IN TO ER PMH: ESRD ON HD CC; PAIN AND PUS AT DIALYSIS SITE SI: ELEVATED TROPONIN. CELLULITIS OF DIALYSIS FISTULA 98.0 82 18 144/94 97% ON RA CR+15.3 TROPONIN(+) 0.271 IS: IV VANCOMYCIN TYLENOL PO ASA PO : TO TELEMETRY 05/03/19 LEFT AMA
--- NOTE | 2019-05-03 15:45 | History and Physical Report ---
DATE OF ADMISSION: 05/03/2019 REASON FOR ADMISSION: Possible infected dialysis fistula. HISTORY OF PRESENT ILLNESS: The patient is a 43-year-old male who is a dialysis patient. Dialysis was last performed yesterday. The patient noted to have redness and swelling in the site. The patient has not taken any antibiotics. The patient was admitted for IV antibiotics and further evaluation by Renal. PAST MEDICAL HISTORY: Notable for end-stage renal disease, hypertension, possible cardiomyopathy. MEDICATIONS: Reviewed. ALLERGIES: Reviewed. SOCIAL HISTORY: Nonsmoker. The patient does have history of alcohol use. The patient is and working. REVIEW OF SYSTEMS: Otherwise negative. PHYSICAL EXAMINATION: GENERAL: A well-developed male, comfortable at present. VITAL SIGNS: Reviewed. Blood pressure reviewed pulse 70, respiratory rate 20, O2 saturation 100%. The patient is afebrile. HEENT: Negative. NECK: Supple. LUNGS: Clear. CARDIAC: S1 and S2. Regular rate and rhythm. ABDOMEN: Soft, nontender. EXTREMITIES: No edema. Cellulitic changes in dialysis fistula site. IMPRESSION: 1. Possible dialysis fistula infection versus cellulitis versus abscess. 2. End-stage renal disease. 3. Hypertension. RECOMMENDATION: 1. IV vancomycin for now. 2. ID evaluation to follow. 3. Renal evaluation to assist and with hemodialysis. 4. Blood pressure support. 5. Monitor clinically for further changes. 6. Optimize and discharge once cleared by all. Akin Martinez M.D. DR: Margo JOB#: [id number] CC: MARQUEZ
--- NOTE | 2019-05-04 10:12 | NUR ---
*--* INSURANCE *--* ALL CLINICALS HAVE BEEN FAXED TO: ADRIANNE CASILLASM: VONDA P- [phone] F- [phone]........REVIEW/CLINICAL
--- NOTE | 2019-05-05 21:12 | Discharge Summary ---
Discharge Summary Discharge Summary _ DATE OF ADMISSION: 05/03/2019 DATE OF DISCHARGE: 05/03/2019 Patient left AGAINST MEDICAL ADVICE REASON FOR ADMISSION: 43 years old male, with past medical history of end-stage renal disease, on hemodialysis, hypertension, possible cardiomyopathy, noted drainage from his dialysis fistula earlier. He denied fevers and chills. Dialysis was done the day prior to presentation to ED. Patient was not taking any antibiotics. Upon evaluation patient was afebrile, and vital signs were stable. Laboratory work-up revealed no leukocytosis, hemoglobin 11.2 ,hematocrit 32.9 , platelet counts 206. Stable electrolytes . Lactic acid 0.5 . Glucose 97 . Troponin - 0.271 ,total CK 816 . EKG revealed no acute ischemic changes . Stable LFT . Chest x-ray revealed mild pulmonary vascular congestion. Patient admitted with possible dialysis fistula i cellulitis versus abscess. HOSPITAL COURSE: Patient admitted to telemetry floor. Patient started on empiric antibiotic. ID consult was requested. Senior Process Control Tech consult was requested to assist with hemodialysis. Home medication resumed. DVT and GI prophylaxis provided. Antiplatelet therapy with aspirin continued. Patient decided to leave AGAINST MEDICAL ADVICE . The risks and consequences of signing AGAINST MEDICAL ADVICE were discussed with patient in detail. Patient verbalized understanding, nevertheless signed AMA form and left. FINAL DIAGNOSIS Possible dialysis fistula cellulitis versus abscess End-stage renal disease, on hemodialysis Hypertension I have been assigned to dictate discharge summary for this account. I was not involved in the patient's management. Elina Diego NP May 05, 2019 21:12
== END 2019-05-03 08:45 | disposition left against medical advice (07) | DRG 314 ==
LOC: EMR 00:33 → OBSVTOIN 02:08 → 2E 02:08 → INTOOBSV 02:08 → EDBEDREQ 03:03
DX: T82.7XXA Infection and inflammatory reaction due to other cardiac and vascular devices, implants and grafts, initial encounter (principal); N18.6 End stage renal disease; L03.818 Cellulitis of other sites; I12.0 Hypertensive chronic kidney disease with stage 5 chronic kidney disease or end stage renal disease; L02.818 Cutaneous abscess of other sites; Z99.2 Dependence on renal dialysis; Y83.2 Surgical operation with anastomosis, bypass or graft as the cause of abnormal reaction of the patient, or of later complication, without mention of misadventure at the time of the procedure
CPT/HCPCS: 36415; 71045; 80053; 82550; 83605; 83735; 84484; 85025; 85610; 85730; 87040; 87070; 87081; 87181; 87205; 93005; 96365; 96366; 96375; 99285